=== PATIENT | female | born 1995 | race African-American/Black ===

== ENCOUNTER 2018-10-27 15:22 | Inpatient (IN) | payer MEDICAID ==
[~2018-10-27] VITALS: Ht 165.1 cm; Wt 92.1 kg
--- NOTE | 2018-10-27 16:01 | NUR ---
ED Nurse Note: Pt came into the ER w/ complaints of dizziness x 5 days. Complaining of vomiting as well. Comit is what food she ate at the time. Rating a headache pain a 7/10. Non radiating. According to pt, she went to another ER last week and was diagnosed with left ear infection. She was given ear drops for the infection. She mendoza snot completed the course of atb. A + O x4. Ambulatory. Skin warm to touch. Urine has been provided.
[2018-10-27 16:02] VITALS: BP 146/52
[2018-10-27] MEDS ORDERED: Metoclopramide 10mg/2ml Inj IVP ONE (16:15)
--- NOTE | 2018-10-27 16:29 | NUR ---
ED Nurse Note: Pt went down to CT.
[2018-10-27] MEDS ORDERED: Isovue-370 150ml vial INJ PRN (16:30)
--- NOTE | 2018-10-27 16:30 | Emergency Room Report ---
History of Present Illness General Chief Complaint: Dizziness Source: Patient Present Illness HPI She is a 23-year-old female who presented after multiple reported episodes of loss of consciousness. She reports being approximately 7 months . She reports currently breast-feeding. She denies any fever. She reports having generalized weakness prior to syncopal episodes. She denies any current bleeding. Patient states that she has been feeling somewhat more dizzy than usual and had a worsening headache. She denies prior history of headaches. She states she is recently seen at [facility].Patient did not have any laboratory testing performed at this time. Allergies: Coded Allergies: No Known Allergies (Unverified , 10/27/18) Patient History Past Medical History: see triage record Now: No Reviewed Nursing Documentation: PMH: Agreed; PSxH: Agreed Nursing Documentation-PMH Past Medical History: No Stated History Review of Systems All Other Systems: negative except mentioned in HPI Physical Exam Vital Signs Date Time Temp Pulse Resp B/P (MAP) Pulse Ox O2 Delivery O2 Flow Rate FiO2 10/27/18 15:43 99.0 76 18 146/92 98 Room Air 10/27/18 16:02 100 Sp02 EP Interpretation: reviewed, normal General Appearance: normal inspection, well appearing, no apparent distress, alert, GCS 15 Head: atraumatic ENT: normal ENT inspection, hearing grossly normal, normal voice Neck: normal inspection, full range of motion, supple, no bony tend Respiratory: normal inspection, lungs clear, normal breath sounds, no respiratory distress, no retraction, no wheezing Cardiovascular #1: regular rate, rhythm, no edema Gastrointestinal: normal inspection, normal bowel sounds, non tender, soft, no guarding, no hernia Genitourinary: no CVA tenderness Musculoskeletal: normal inspection, back normal, normal range of motion Neurologic: normal inspection, alert, oriented x3, responsive, outsole paraffiner III-XII nml as tested, speech normal Psychiatric: normal inspection, judgement/insight normal, mood/affect normal Skin: normal inspection, normal color, no rash Medical Decision Making Diagnostic Impression: Primary Impression: Recurrent syncope Additional Impression: Abnormal EKG ER Course Patient presented for generalized weakness and syncopal episode. Differential diagnosis included was not limited to anemia, pulmonary embolism, seizures, diabetes, dehydration among others. Because of complexity of patient's case laboratory testing and imaging studies were ordered.EKG interpreted by me showed normal sinus rhythm with inferior and inferolateral T wave inversion. CT of chest read by radiology showed no evidence of definite pulmonary embolism however contrast was suboptimal. Patient was given medications for headache. CT of the head read by radiology showed no evidence of any acute intracranial hemorrhage or ventriculomegaly. Dr. Yosi Blandon was contacted for inpatient management. Labs Test 10/27/18 16:12 10/27/18 16:15 Sodium Level 144 MMOL/L (136-145) Potassium Level 3.4 MMOL/L (3.5-5.1) Chloride Level 106 MMOL/L (98-107) Carbon Dioxide Level 25 MMOL/L (21-32) Anion Gap 13 mmol/L (5-15) Blood Urea Nitrogen 6 mg/dL (7-18) Creatinine 1.0 MG/DL (0.55-1.30) Estimat Glomerular Filtration Rate > 60 mL/min (>60) Glucose Level 94 MG/DL (74-106) Calcium Level 9.2 MG/DL (8.5-10.1) Total Bilirubin 0.4 MG/DL (0.2-1.0) Aspartate Amino Transf (AST/SGOT) 17 U/L (15-37) Alanine Aminotransferase (ALT/SGPT) 18 U/L (12-78) Alkaline Phosphatase 96 U/L (46-116) Total Protein 7.8 G/DL (6.4-8.2) Albumin 4.2 G/DL (3.4-5.0) Globulin 3.6 g/dL Albumin/Globulin Ratio 1.2 (1.0-2.7) Lipase 141 U/L (73-393) Thyroid Stimulating Hormone (TSH) 0.701 uiU/mL (0.358-3.740) White Blood Count 7.7 K/UL (4.8-10.8) Red Blood Count 4.50 M/UL (4.20-5.40) Hemoglobin 13.7 G/DL (12.0-16.0) Hematocrit 40.2 % (37.0-47.0) Mean Corpuscular Volume 89 FL (80-99) Mean Corpuscular Hemoglobin 30.3 PG (27.0-31.0) Mean Corpuscular Hemoglobin Concent 34.0 G/DL (32.0-36.0) Red Cell Distribution Width 11.1 % (11.6-14.8) Platelet Count 279 K/UL (150-450) Mean Platelet Volume 7.4 FL (6.5-10.1) Neutrophils (%) (Auto) 58.6 % (45.0-75.0) Lymphocytes (%) (Auto) 33.1 % (20.0-45.0) Monocytes (%) (Auto) 6.2 % (1.0-10.0) Eosinophils (%) (Auto) 0.4 % (0.0-3.0) Basophils (%) (Auto) 1.7 % (0.0-2.0) Prothrombin Time 10.8 SEC (9.30-11.50) Prothromb Time International Ratio 1.0 (0.9-1.1) Activated Partial Thromboplast Time 25 SEC (23-33) D-Dimer < 0.19 mg/L FEU Urine Color Yellow Urine Appearance Clear Urine pH 7 (4.5-8.0) Urine Specific [place] 1.010 (1.005-1.035) Urine Protein 1+ (NEGATIVE) Urine Glucose (UA) Negative (NEGATIVE) Urine Ketones 1+ (NEGATIVE) Urine Blood Negative (NEGATIVE) Urine Nitrite Negative (NEGATIVE) Urine Bilirubin Negative (NEGATIVE) Urine Urobilinogen Normal MG/DL (0.0-1.0) Urine Leukocyte Esterase 1+ (NEGATIVE) Urine RBC 0 /HPF (0 - 2) Urine WBC 0-2 /HPF (0 - 2) Urine Squamous Epithelial Cells Occasional /LPF Urine Bacteria Occasional /HPF (NONE) Urine Mucus Occasional /LPF Urine HCG, Qualitative Negative (NEGATIVE) Troponin I 0.008 ng/mL (0.000-0.056) EKG Diagnostic Results Rate: normal Rhythm: NSR ST Segments: other - inferior twave inversion, lateral twave flattening Last Vital Signs Date Time Temp Pulse Resp B/P (MAP) Pulse Ox O2 Delivery O2 Flow Rate FiO2 10/27/18 16:02 91 22 Room Air 100 10/27/18 16:02 99.0 146/52 100 Status: unchanged Disposition: ADMITTED INPATIENT Condition: Stable Scripts Unable to Obtain Active Prescriptions or Reported Meds Reji Fernández MD Oct 27, 2018 16:30
[2018-10-27 16:37] LABS: APPEARANCE,URINE CLEAR; BILIRUBIN, URINE NEGATIVE (NEGATIVE); GLUCOSE, URINE (UA) NEGATIVE (NEGATIVE); KETONES,URINE 1+ (NEGATIVE); LEUKOCYTE ESTERASE ,URINE 1+ (NEGATIVE); NITRITE,URINE NEGATIVE (NEGATIVE); PH,URINE 7 (4.5-8.0); PROTEIN,URINE 1+ (NEGATIVE); UROBILINOGEN,URINE NORMAL MG/DL (0.0-1.0)
--- NOTE | 2018-10-27 16:38 | NUR ---
ED Nurse Note: Pt came back from CT.
[2018-10-27 16:39] LABS: BASOPHILS % (AUTO) 1.7 % (0.0-2.0); EOSINOPHILS % (AUTO) 0.4 % (0.0-3.0); HEMATOCRIT 40.2 % (37.0-47.0); HEMOGLOBIN 13.7 G/DL (12.0-16.0); LYMPHOCYTES % (AUTO) 33.1 % (20.0-45.0); MEAN CORPUSCULAR VOLUME 89 FL (80-99); MONOCYTES % (AUTO) 6.2 % (1.0-10.0); NEUTROPHILS % (AUTO) 58.6 % (45.0-75.0); PLATELET COUNT 279 K/UL (150-450); RED CELL DISTRIBUTION WIDTH 11.1 % (11.6-14.8); WHITE BLOOD COUNT 7.7 K/UL (4.8-10.8)
[2018-10-27 16:40] LABS: COLOR,URINE YELLOW
--- NOTE | 2018-10-27 16:42 | NUR ---
ED Nurse Note: Notified by lab hcg neg. Notified ERMD.
[2018-10-27 16:48] LABS: ANION GAP 13 mmol/L (5-15); BLOOD UREA NITROGEN 6 mg/dL (7-18); CALCIUM 9.2 MG/DL (8.5-10.1); CARBON DIOXIDE 25 MMOL/L (21-32); CHLORIDE 106 MMOL/L (98-107); POTASSIUM 3.4 MMOL/L (3.5-5.1); SODIUM 144 MMOL/L (136-145)
--- NOTE | 2018-10-27 16:52 | NUR ---
ED Nurse Note: CONTACTED [facility] FOR PHI. PER MIRANDA, SHE RECEIVED THE FAXED RELEASE FORM
--- NOTE | 2018-10-27 16:53 | Diagnostic Imaging Report ---
Indication: Headache Technique: Contiguous 5 mm thick transaxial imaging of the head obtained in a Siemens Sensation [address] scanner. Soft tissue and bone windows generated. Automatic Exposure Control was utilized. Total Dose length Product (DLP): 1291.[address] Dose Index Volume (CTDIvol): 70.38 mGy Comparison: none Findings: The size and configuration of the cortical sulci, basal cisterns, and ventricles are within normal limits for age. There is no mass effect, midline shift, or edema identified. There is no evidence of acute hemorrhage or abnormal intra-axial or extra-axial fluid collections. The bones and soft tissues are unremarkable. Impression: No mass effect, edema or acute bleed. The CT scanner at [facility] is accredited by the [employer] and the scans are performed using dose optimization techniques as appropriate to a performed exam including Automatic Exposure control.
[2018-10-27 16:58] LABS: PARTIAL THROMBOPLASTIN TIME 25 SEC (23-33)
--- NOTE | 2018-10-27 17:00 | NUR ---
ED Nurse Note: Pt went down for CTA.
[2018-10-27 17:01] LABS: ALANINE AMINOTRANSFERASE 18 U/L (12-78); ALBUMIN 4.2 G/DL (3.4-5.0); ALBUMIN/GLOBULIN RATIO 1.2 (1.0-2.7); ALKALINE PHOSPHATASE 96 U/L (46-116); ASPARTATE AMINO TRANSFERASE 17 U/L (15-37); BILIRUBIN,TOTAL 0.4 MG/DL (0.2-1.0)
--- NOTE | 2018-10-27 17:04 | NUR ---
[facility] so they should be here within 15 mins.
[2018-10-27 18:41] VITALS: BP 116/69
--- NOTE | 2018-10-27 19:07 | NUR ---
HAND-OFF: Report given to NANDINI Hurtado.
--- NOTE | 2018-10-27 19:12 | NUR ---
ED Nurse Note: report received from juan pablo ramirez pt stable restnig in bed, awaiting room assignment
[2018-10-27 20:00] VITALS: BP 116/69
--- NOTE | 2018-10-27 20:15 | NUR ---
ED Nurse Note: TELEPHONE REPORT GIVEN TO NANDINI TAVERAS
--- NOTE | 2018-10-27 20:30 | NUR ---
ED Nurse Note: PT WAS BROUGHT UP BY ISMAEL CHRISTIANSEN AND NANDINI COSBY ACCOMPANIED BY HAM PUMPER PT WAS STABLE AND RSTING ALL BELONGINGS WERE TAKEN UP WITH PT.
--- NOTE | 2018-10-27 20:31 | NUR ---
NURSE NOTES: NEW ADMISSION. Recvd pt . Pt arrived to tele floor at 2030. Admitting Dx: Recurrent syncope. Admitting Dr; Dr Blandon. Pt is on room air with no sign of sob or resp distress. AOx4. Pt denies pain, n/v. Pt IV site is Right AC 20g and locked. Skin is intact. Full physical assessment completed. Belongings reviewed. Pt does not take any home medications and has no medical history except recurrent synope. Pt also states she is breast feeding her 7 month old baby, this was communicated to Dr Blandon. Pt has 2 "pain away" pills in her purse, they were retrieved and taken to pharmacy for holding. Pt was placed on cardiac monitoring. Pt was oriented to room. VSS upon arrival. Awaiting admitting orders from Dr Blandon
[2018-10-27 21:07] VITALS: BP 134/75
[2018-10-27] MEDS: 1/2NS w/KCl 20mEq 1000ml 1,000 ML IV SCH (23:28)
[2018-10-27 23:32] VITALS: BP 136/95
[2018-10-28 04:00] VITALS: BP 129/67
[2018-10-28] MEDS: 1/2NS w/KCl 20mEq 1000ml 1,000 ML IV SCH ×2 (06:48→15:18)
--- NOTE | 2018-10-28 07:20 | NUR ---
NURSE NOTES: I received the patient awake and resting in bed. Patient alert and oriented x4. Patient does not display any signs of distress or SOB. Bed in the lowest position and call light within reach.
[2018-10-28 07:46] LABS: ALANINE AMINOTRANSFERASE 19 U/L (12-78); ALBUMIN 3.4 G/DL (3.4-5.0); ALBUMIN/GLOBULIN RATIO 1.1 (1.0-2.7); ALKALINE PHOSPHATASE 113 U/L (46-116); ANION GAP 10 mmol/L (5-15); ASPARTATE AMINO TRANSFERASE 15 U/L (15-37); BILIRUBIN,TOTAL 0.3 MG/DL (0.2-1.0); BLOOD UREA NITROGEN 6 mg/dL (7-18); CALCIUM 8.9 MG/DL (8.5-10.1); CARBON DIOXIDE 24 MMOL/L (21-32); CHLORIDE 108 MMOL/L (98-107); CREATININE 0.9 MG/DL (0.55-1.30); POTASSIUM 3.5 MMOL/L (3.5-5.1); SODIUM 142 MMOL/L (136-145)
--- NOTE | 2018-10-28 07:52 | NUR ---
HAND-OFF: Report given to Janie DELATORRE .
[2018-10-28 08:00] VITALS: BP 127/79
[2018-10-28] MEDS ORDERED: Heparin 5000 units/ml inj SUBQ SCH (09:00)
--- NOTE | 2018-10-28 09:03 | Diagnostic Imaging Report ---
ndication: Chest pain Technique: IV administration nonionic contrast. Spiral acquisitions obtained from the lung bases to the lung apices. Multiplanar and 3-D reconstructions were generated. Total dose length product 869.44 mGycm. CTDIvol(s) 27.89 mGy. Dose reduction achieved using automated exposure control Comparison: none Findings: Exam is somewhat limited by suboptimal contrast bolus as well as some respiratory motion artifact, small peripheral emboli could be missed. No gross intraluminal filling defects or other findings to suggest acute pulmonary embolus. There is variant anatomy of the aortic arch, with an aberrant right subclavian artery. No thoracic aortic aneurysm or dissection. Normal caliber pulmonary arteries. No evidence of right ventricular dilatation. Evaluation of the pulmonary parenchyma is somewhat limited by motion artifact, particularly in the bases. No infiltrates, effusions, masses. No definite nodules although small lesions could be missed. No pericardial effusion. Normal heart size. No mediastinal or hilar mass or adenopathy. No axillary or chest wall mass or adenopathy. Included upper abdominal anatomy is unremarkable. Impression: Limited exam. 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 Simmons The CT scanner at [facility] is accredited by the [employer] and the scans are performed using protocols designed to limit radiation exposure to as low as reasonably achievable to attain images of sufficient resolution adequate for diagnostic evaluation.
--- NOTE | 2018-10-28 11:30 | NUR ---
*-* INSURANCE *-* ALL CLINICALS HAVE BEEN FAXED TO: F/S FAXED TO SOFIA RICH PLEASE FAX THE REVIEW/CLINICAL FX: [phone] & F/S FAXED TO JOAQUIM BATRES: ROSALVA Vazquez [phone] X [id number] F- [phone]
--- NOTE | 2018-10-28 15:09 | Cardiology Report ---
APPROVED REPORT EKG Measurement Heart [id number] TN 138P30 [id number] Normal sinus rhythm T wave abnormality, consider inferior ischemia Abnormal ECG
[2018-10-28 16:00] VITALS: BP 126/85
--- NOTE | 2018-10-28 17:00 | NUR ---
NURSE NOTES: Patient discharged in stable condition. Patient confirmed she was in possession of all her belongings. Patient's IV removed and the IV site did not display any signs of bleeding, redness or swelling. Patient was transported to the [facility] via wheelchair and a friend transported the patient home. Patient alert and oriented x4 and in stable condition upon discharge.
--- NOTE | 2018-10-28 19:04 | NUR ---
CASE MANAGEMENT: REVIEW PRESENTED TO ED FROM HOME CC: DIZZINESS X1 WEEK SI: SYNCOPE T 99.0 HR 76 RR 22 BP 146/92 SAT 98% ROOM AIR TROPONIN I 0.008 IS: NS IVF BOLUS X1 REGLAN IV X1 PATIENT ADMITTED TO TELEMETRY UNIT 10/27/2018 DCP: PATIENT IS FROM HOME
--- NOTE | 2018-10-28 22:00 | History and Physical Report ---
DATE OF ADMISSION: 10/27/2018 REASON FOR ADMISSION: Syncope. HISTORY OF PRESENT ILLNESS: This 23-year-old female who is 7 months and continues to breastfeed her baby. She has had a couple episodes of loss of consciousness. She says that usually she is quite tired and found herself on the ground near the bed this evening. She does not recall falling and she did not injure herself or have any loss of bladder or bowel function. She has had generalized weakness prior to these events, but has not had any other constitutional symptoms. She was apparently seen at [facility] for similar symptoms about a week ago and was only evaluated in the emergency room with no other workup other than labs undertaken. MEDICATIONS: The patient takes no medications. ALLERGIES: She has no drug allergies. PAST MEDICAL HISTORY: Otherwise unremarkable. SOCIAL HISTORY: Negative for smoking, alcohol, or substance abuse. REVIEW OF SYSTEMS: A 10-point review of systems was performed and otherwise negative. PHYSICAL EXAMINATION: VITAL SIGNS: Blood pressure 146/92, pulse 76, respirations 18, temperature 99. HEENT: Conjunctivae are pink. Oropharynx clear. NECK: Supple. Jugular venous pressure normal. LUNGS: Clear. CARDIAC: Regular rhythm rate. Normal S1, S2 with no murmur, rub, or gallop. ABDOMEN: Soft, nontender. EXTREMITIES: Good pulses. No edema. DIAGNOSTIC AND LABORATORY DATA: CAT scan of the brain revealed no acute process. Chemistry panel notable for potassium 3.4. White count 7.7, hemoglobin 13.7. Normal liver function. EKG sinus rhythm with nonspecific T-wave abnormalities. Urinalysis revealed no active sediment. IMPRESSION: Recurring syncope in this clinical setting based on available data is likely due to vasovagally mediated event. There is no sign of acute cerebrovascular abnormality and cardiovascular parameters appear stable. RECOMMENDATIONS: 1. Admit for observation. 2. Hydrate. 3. Cardiac monitoring. 4. Repeat troponin level. 5. Vitamin supplementation. Yosi Blandon M.D. DR: JOEL JOB#: [id number] CC:
--- NOTE | 2018-10-28 23:00 | History and Physical Report ---
DATE OF ADMISSION: 10/27/2018 INCOMPLETE DICTATION DATE: 10/27/2018 REASON FOR ADMISSION: Dizziness and syncope. Yosi Blandon M.D. DR: DEMIAN JOB#: [id number] CC:
--- NOTE | 2018-10-28 23:15 | Progress Note ---
DATE: 10/28/2018 SUBJECTIVE: The patient with no new complaints. No episodes of loss of consciousness. No dizziness. No palpitations. Tolerating diet. No nausea or vomiting. OBJECTIVE: VITAL SIGNS: Blood pressure 127/79, pulse 66, respirations 20, non-orthostatic. NECK: Supple. LUNGS: Clear. CARDIAC: Regular. Normal S1, S2. No murmur. ABDOMEN: Soft. EXTREMITIES: No edema. IMAGING: Echocardiogram with no abnormalities. IMPRESSION: Vasovagal syncope. No signs of structural heart disease. No signs of cerebrovascular disease based on imaging studies. Discussed with the patient who is anxious to go home. She has been recommended to maintain adequate hydration, get enough rest, and consider neurologic evaluation for EEG should further syncopal episodes be noted. Yosi Blandon M.D. DR: TAVO JOB#: [id number] CC:
--- NOTE | 2018-10-29 09:09 | Cardiology Report ---
APPROVED REPORT EXAM: Two-dimensional and M-mode echocardiogram with Doppler and color Doppler. M-Mode DIMENSIONS IVSd0.7 (0.7-1.1cm)Left Atrium (MM)3.5 (1.6-4.0cm) LVDd4.5 (3.5-5.6cm)Aortic Root3.6 (2.0-3.7cm) PWd1.0 (0.7-1.1cm)Aortic Cusp Exc.1.8 (1.5-2.0cm) LVDs3.4 (2.5-4.0cm) PWs1.1 cm Normal left ventricular chamber size, systolic function and wall motion. Left ventricular ejection fraction estimated to be 55-60 %. Anterior Echo-free space, may be due to pericardial fat or effusion. All other cardiac chamber sizes are within normal limits. Normal appearing aortic, mitral, pulmonic and tricuspid valves. Mild mitral annulus and aortic root calcification. IVC measured at 1.3 cm with physiologic collapse. A color flow and spectral Doppler study was performed and revealed: No aortic regurgitation. Trace mitral regurgitation. Mitral diastolic velocities suggest normal LV diastolic function. Trace tricuspid regurgitation. Tricuspid systolic velocities suggests peak right ventricular systolic pressure of 23 mmHg. Pulmonic regurgitation present.
--- NOTE | 2018-10-29 12:55 | Discharge Summary ---
Discharge Summary Discharge Summary _ DATE OF ADMISSION: 10/27/2018 DATE OF DISCHARGE: 10/28/2018 DISCHARGED BY: Dr. Yosi Blandon BRIEF HOSPITAL COURSE: Patient is a 23-year-old -[place] female, who is 7 months and continues to breast-feed her baby. She had a couple episodes of loss of consciousness. She stated she usually is tired and found herself on the ground near the bed. She did not recall falling. She did not injure herself. There was no loss of bladder or bowel function. She had generalized weakness prior to these events, but did not have any other constitutional symptoms. She was apparently seen at [facility] for similar symptoms about a week ago and was evaluated in the emergency room with no other workup other than labs taken. On evaluation at ED, blood pressure was 146/92, pulse rate 76, temperature 99, she was saturating 98% on room air. Blood work did not show any leukocytosis. Hemoglobin and hematocrit were stable. Electrolytes were normal. D-dimer was less than 0.19. Urinalysis was negative. EKG showed normal sinus rhythm with nonspecific T wave abnormalities. CTA of the chest did not show any evidence of definite pulmonary embolism. CT of the head did not show any acute intracranial hemorrhage, mass-effect or edema. She was then admitted for evaluation of recurring syncope. Based on data available, most likely due to base so vagally mediated event. There was no sign of acute cerebrovascular abnormality and cardiovascular parameters appeared stable. She was given IV hydration. She was placed on pvc monitor. She was given vitamin supplementation. Troponin level was monitored and were negative. TSH was normal. Echocardiogram done showed ejection fraction of 55-60%. Echocardiogram was with no abnormalities. Patient had vasovagal syncope. There were no signs of structural heart disease. No signs of cerebrovascular disease based on imaging studies. She was recommended to maintain adequate hydration, to get enough rest , and consider neurologic evaluation for EEG should further syncopal episodes occur. She was eventually discharged home. FINAL DIAGNOSES: Vasovagal syncope DISPOSITION: Patient was discharged home. DISCHARGE INSTRUCTIONS: Follow-up in a week. I have been assigned to complete a discharge summary on this account, I was not involved with the patient's management. Emily Ashley NP Oct 29, 2018 12:55
== END 2018-10-28 17:03 | disposition home or self-care (01) | DRG 204 ==
LOC: EMR 16:53 → 2E 19:15 → EDBEDREQ 19:36 → 2E 20:42
DX: R55 Syncope and collapse (principal)
CPT/HCPCS: 36415; 70450; 71275; 80053; 81001; 81025; 82306; 82607; 82746; 82962; 83690; 83735; 84443; 84484; 85025; 85379; 85610; 85730; 86850; 86900; 86901; 93005; 93306; 96374; 99285; J2765; J8499

== ENCOUNTER 2019-03-23 21:41 | Emergency (ER) | payer MEDICAID ==
[~2019-03-23] VITALS: Ht 167.6 cm; Wt 81.6 kg
--- NOTE | 2019-03-23 21:50 | NUR ---
ED Nurse Note: RECIEVED PT BIBA FROM STORE S/P WITNESSED SYNCOPAL EPISODE, PT REMAINED AWAKE, NO LOC OR INJURY, PT DENIES PAIN, SOB, HS HX OF THIS BEFORE 6 MONTHS AGO, NO F/U DONE, PT DENIES ANY OTHER COMPLAINTS OR INJURIES, PT ADMITS TO SMOKING MARIJUANNA PRIOR.
--- NOTE | 2019-03-23 21:54 | Emergency Room Report ---
History of Present Illness General Chief Complaint: Syncope Source: Patient Present Illness HPI Is a 23-year-old female with no past medical history other than recurrent syncope. She presents with chief complaint of syncope. She was at the [employer] try withdraw some money and next thing she knew she was on the ground. She has no symptoms. This will be the fifth time this happened to her. Just before she had syncope she had some dizziness but she sat down at the bus stop for 10 minutes and got better. When she went to the [employer] again she passed out. Denies any stressful day. Denies any nausea vomiting. Denies any other complaint. No injury. Allergies: Coded Allergies: EGG (Verified Allergy, Unknown, 10/28/18) Patient History Past Medical History: none, see triage record, old chart reviewed Past Surgical History: none Pertinent Family History: none Social History: Denies: smoking Last Menstrual Period: 04/01/19 Now: No Immunizations: other Reviewed Nursing Documentation: PMH: Agreed; PSxH: Agreed Nursing Documentation-PMH Past Medical History: No History, Except For Hx Cardiac Problems: Yes - previous syncope Hx Syncope: Yes - recurrent Review of Systems Eye: Denies: eye pain, blurred vision ENT: Denies: ear pain, nose congestion, throat swelling Respiratory: Denies: cough, shortness of breath Cardiovascular: Denies: chest pain, palpitations Gastrointestinal: Denies: abdominal pain, diarrhea, nausea, vomiting Musculoskeletal: Denies: back pain, joint pain Skin: Denies: rash Neurological: Denies: headache, numbness Endocrine: Denies: increased thirst, increased urine Hematologic/Lymphatic: Denies: easy bruising All Other Systems: negative except mentioned in HPI Physical Exam Vital Signs Date Time Temp Pulse Resp B/P (MAP) Pulse Ox O2 Delivery O2 Flow Rate FiO2 03/23/19 21:36 98.8 79 20 105/68 (80) 98 Room Air Vitals normal Sp02 EP Interpretation: reviewed, normal General Appearance: well appearing, no apparent distress, alert Head: normocephalic, atraumatic Eyes: bilateral eye PERRL, bilateral eye EOMI ENT: hearing grossly normal, normal pharynx Neck: full range of motion, supple, no meningismus Respiratory: chest non-tender, lungs clear, normal breath sounds Cardiovascular #1: regular rate, rhythm, no murmur Gastrointestinal: normal bowel sounds, non tender, no mass, no organomegaly, no bruit, non-distended Musculoskeletal: back normal, gait/station normal, normal range of motion Psychiatric: mood/affect normal Skin: warm/dry Medical Decision Making Diagnostic Impression: Primary Impression: Syncope Qualified Codes: R55 - Syncope and collapse ER Course Patient presents with syncope. No prodrome. She was admitted here in September and work-up was normal. She has not seen a propulsion generator repairer or neurologist. She is not driving so I see no need to do a DMV report. EKG unremarkable. Will discharge home. EKG Diagnostic Results Rate: normal Rhythm: NSR ST Segments: no acute changes Rhythm Strip Diag. Results EP Interpretation: yes Rate: 80 Rhythm: NSR, no PVC's, no ectopy Last Vital Signs Date Time Temp Pulse Resp B/P (MAP) Pulse Ox O2 Delivery O2 Flow Rate FiO2 03/23/19 21:36 98.8 79 20 105/68 (80) 98 Room Air Status: improved Disposition: HOME, SELF-CARE Condition: Stable Scripts Unable to Obtain Active Prescriptions or Reported Meds Patient Instructions: Syncope Additional Instructions: Follow-up with your doctor within a week. You may benefit from a referral to see a propulsion generator repairer for a Holter/event monitor. You may also need a referral to see a neurologist if still having recurrent passing out spells. Return if symptoms worsen. Arnaldo Bender MD Mar 23, 2019 21:54
[2019-03-23 22:26] LABS: APPEARANCE,URINE CLOUDY; BILIRUBIN, URINE NEGATIVE (NEGATIVE); GLUCOSE, URINE (UA) NEGATIVE (NEGATIVE); KETONES,URINE NEGATIVE (NEGATIVE); LEUKOCYTE ESTERASE ,URINE 1+ (NEGATIVE); NITRITE,URINE NEGATIVE (NEGATIVE); PH,URINE 6 (4.5-8.0); PROTEIN,URINE 1+ (NEGATIVE); UROBILINOGEN,URINE NORMAL MG/DL (0.0-1.0)
[2019-03-23 22:28] LABS: COLOR,URINE YELLOW
[2019-03-23 22:30] VITALS: BP 111/64
--- NOTE | 2019-03-23 22:35 | NUR ---
ED Nurse Note: PT CONSTANTLY ASKING TO GO HOME AND VERY ANXIOUS, CONTINUES TO DENY PAIN, SOB, OR ANY COMPLAINTS, PT AMBULATED TO BATHROOM, NO DIZINESS, STEADY GAIT, NAD NOTED, PT IS BEING PREPARED FOR D/C TO HOME, PT GIVEN F/U INFO, AFTERCARE INSTRUCTINS AND RE-VERBALIZES PROPER MEDICAION ADMINISTRATION, PT LEAVING WITH NAD NOTED. ARMBAND REMOVED.
[2019-03-23 22:45] VITALS: BP 111/64
--- NOTE | 2019-03-25 15:59 | Cardiology Report ---
APPROVED REPORT EKG Measurement Heart [id number] CT 142P46 [id number] Normal sinus rhythm with sinus arrhythmia Normal ECG
== END 2019-03-23 22:40 | disposition home or self-care (01) ==
LOC: EDBD 21:41 → EMR 21:52
DX: R55 Syncope and collapse (principal); Z91.012 Allergy to eggs
CPT/HCPCS: 81003; 81025; 93005; 99283